=== PATIENT | male | born 1965 | race Caucasian/White ===

== ENCOUNTER 2020-05-08 18:39 | Emergency (ER) | payer BC, SELFPAY ==
[2020-05-08 19:00] VITALS: BP 141/89; PULSE 102; RESP 18; TEMP 36.9; O2SAT 98; BMI 27.9
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
[2020-05-08 20:08] VITALS: BP 141/89; PULSE 102; RESP 18; TEMP 36.9; O2SAT 98
== END 2020-05-08 20:10 | disposition home or self-care (01) ==
PROVIDERS: Emergency Provider Nurse Practitioner
DX: S01.81XA Laceration without foreign body of other part of head, initial encounter (principal); W22.8XXA Striking against or struck by other objects, initial encounter; Y92.89 Other specified places as the place of occurrence of the external cause; Z23 Encounter for immunization
CPT/HCPCS: 12001; 90715; 99202; G0463